=== PATIENT | female | born 1970 | race African-American/Black ===

== ENCOUNTER 2016-05-28 13:28 | Emergency (ER) | payer OTHER ==
[2016-05-28] MEDS ORDERED: Adacel (T-DAP) 0.5 ML VIAL ONE (14:07)
[2016-05-28] MEDS ORDERED: HYDROcodone/Acetaminophen 10/325 mg Tablet ONE (14:07)
[2016-05-28] MEDS ORDERED: Cephalexin 500 MG CAP ONE (14:07)
[2016-05-28] MEDS ORDERED: Naproxen 500 MG TAB ONE (14:07)
[2016-05-28] MEDS ORDERED: Triple Antibiotic Oint 1 GM Packet ONE (14:08)
--- NOTE | 2016-05-28 15:47 | RAD ---
LEFT TIBIA AND FIBULA TWO VIEWS 05/28/16 HISTORY: Trauma to leg. There is no signs of fracture or dislocation. IMPRESSION: Negative left tib/fib. POS: [facility]
== END 2016-05-28 15:05 | disposition home or self-care (01) ==
LOC: MADERS 13:28
DX: S80.12XA Contusion of left lower leg, initial encounter (principal); S80.812A Abrasion, left lower leg, initial encounter; W19.XXXA Unspecified fall, initial encounter
CPT/HCPCS: 90471; 90715

== ENCOUNTER 2016-12-13 14:49 | Emergency (ER) | payer OTHER | END 2016-12-13 16:15 | disposition home or self-care (01) | LOC: MADERS 14:49 | DX: J20.9 Acute bronchitis, unspecified (principal); Z79.899 Other long term (current) drug therapy | CPT/HCPCS: 93005 ==

== ENCOUNTER 2017-03-15 06:12 | Emergency (ER) | payer OTHER ==
[2017-03-15 07:28] LABS: #Eosinphils 0.3 thou/uL (0.0-0.7); #Lymphocytes 1.6 thou/uL (1.20-3.40); #Monocytes 0.5 thou/uL (0.11-0.59); #Neutrophils 4.7 thou/uL (1.40-6.50); %Basophils 0.6 % (0.0-1.0); %Eosinophils 3.6 % (0.0-10.0); %Lymphocytes 21.9 % (21.0-51.0); %Monocytes 7.3 % (0.0-10.0); %Neutrophils 66.6 % (42.0-75.0); Hemoglobin 13.3 g/dL (12.0-16.0); Mean Corpuscular HGB CONC 31.9 g/dL (32.0-36.0); Mean Corpuscular Hemoglobin 29.3 pg (27.0-31.0); Mean Corpuscular Volume 91.8 fl (81.0-99.0); Mean Platelet Volume 11.6 fL (7.4-10.4); Platelet Count 211 thou/uL (130-400); RBC Distribution Width 12.9 % (11.5-14.5); Red Blood Cell (RBC) Count 4.52 mill/uL (4.20-5.40); White Blood Cell (WBC) Count 7.1 thou/uL (4.8-10.8)
[2017-03-15 07:49] LABS: ALT (SGPT) 19 U/L (8-55); AST (SGOT) 24 U/L (5-34); Albumin 3.7 g/dL (3.5-5.0); Alkaline Phosphatase 67 U/L (40-150); Anion Gap 14 mmol/L (10-20); BUN (Urea Nitrogen) 9 mg/dL (7.0-18.7); Bilirubin, Total 0.4 mg/dL (0.2-1.2); Calc. Creatinine Clearance 0 mL/min (70-130); Calcium 9.4 mg/dL (7.8-10.44); Carbon Dioxide 26 mmol/L (22-29); Chloride 105 mmol/L (98-107); Estimated GFR-MDRD Greater than 90; Globulin 3.6 g/dL (2.4-3.5); Glucose 90 mg/dL (70-105); Potassium 4.6 mmol/L (3.5-5.1); Protein, Total 7.3 g/dL (6.0-8.3); Sodium 140 mmol/L (136-145); Uric Acid 4.6 mg/dL (2.6-6.0)
[2017-03-15] MEDS ORDERED: Ondansetron ODT 4 MG TAB ONE (07:58)
[2017-03-15] MEDS ORDERED: Ketorolac Tromethamine 30 MG/ML VIAL ONE (07:58)
--- NOTE | 2017-03-15 08:14 | RAD ---
THREE VIEWS LEFT ANKLE: Comparison: None. History: Left ankle pain for the last couple of days. FINDINGS: Three views of the left ankle shows no evidence of acute fracture or dislocation. No soft tissue swel ling is seen. No degenerative changes are present. IMPRESSION: Unremarkable exam. POS: [id number]
== END 2017-03-15 08:10 | disposition home or self-care (01) ==
LOC: MADERS 06:12
DX: S93.401A Sprain of unspecified ligament of right ankle, initial encounter (principal); S93.402A Sprain of unspecified ligament of left ankle, initial encounter; Z79.899 Other long term (current) drug therapy; X50.9XXA Other and unspecified overexertion or strenuous movements or postures, initial encounter
CPT/HCPCS: 80053; 84550; 85025; 85652; 96372; J1885; Q0162

== ENCOUNTER 2017-11-01 14:38 | Emergency (ER) | payer OTHER ==
[2017-11-01] MEDS ORDERED: Acetaminophen 500 MG TAB ONE (15:14)
[2017-11-01] MEDS ORDERED: Dexamethasone 4 MG TAB ONE (15:14)
== END 2017-11-01 15:32 | disposition home or self-care (01) ==
LOC: MADERS 14:38
DX: M79.602 Pain in left arm (principal); Z79.899 Other long term (current) drug therapy
CPT/HCPCS: 99283; J8540

== ENCOUNTER 2018-04-29 11:49 | Emergency (ER) | payer OTHER ==
[2018-04-29] MEDS ORDERED: Acetaminophen 500 MG TAB ONE (12:21)
--- NOTE | 2018-04-29 13:33 | RAD ---
2 VIEW CHEST: Date: 04/29/18 INDICATION: Cough. FINDINGS: Lungs are clear. Cardiac silhouette is normal in size. No effusion or pneumothorax. IMPRESSION: No focal consolidation. POS: [facility]
== END 2018-04-29 13:05 | disposition home or self-care (01) ==
LOC: MADERS 11:49
DX: J06.9 Acute upper respiratory infection, unspecified (principal)
CPT/HCPCS: 71046; 87804

== ENCOUNTER 2021-02-01 14:12 | Outpatient (CLI) | payer BC | END 2021-02-01 14:13 | disposition home or self-care (01) | LOC: MADRAD 14:12 | PROVIDERS: ATTEND Family Medicine | DX: R05.9 Cough, unspecified (principal) | CPT/HCPCS: 71046 ==

== ENCOUNTER 2021-02-02 05:45 | Outpatient (CLI) | payer BC ==
[2021-02-02 06:59] LABS: #Basophils 0.1 thou/uL (0.0-0.2); #Eosinphils 0.3 thou/uL (0.0-0.7); #Lymphocytes 2.1 thou/uL (1.20-3.40); #Monocytes 0.6 thou/uL (0.11-0.59); #Neutrophils 5.4 thou/uL (1.40-6.50); %Basophils 1.1 % (0.0-1.0); %Eosinophils 3.7 % (0.0-10.0); %Lymphocytes 24.4 % (21.0-51.0); %Monocytes 7.4 % (0.0-10.0); %Neutrophils 63.3 % (42.0-75.0); Hemoglobin 13.8 g/dL (12.0-16.0); Mean Corpuscular HGB CONC 31.6 g/dL (32.0-36.0); Mean Corpuscular Hemoglobin 28.7 pg (27.0-31.0); Mean Corpuscular Volume 90.7 fL (78.0-98.0); Mean Platelet Volume 10.2 fL (7.4-10.4); Platelet Count 239 thou/uL (130-400); RBC Distribution Width 13.3 % (11.5-14.5); White Blood Cell (WBC) Count 8.6 thou/uL (4.8-10.8)
[2021-02-02 07:12] LABS: ALT (SGPT) 43 U/L (8-55); AST (SGOT) 30 U/L (5-34); Albumin 3.5 g/dL (3.5-5.0); Alkaline Phosphatase 76 U/L (40-110); Anion Gap 12 mmol/L (10-20); BUN (Urea Nitrogen) 7 mg/dL (7.0-18.7); Bilirubin, Total 0.4 mg/dL (0.2-1.2); Calc. Creatinine Clearance 0 mL/min (70-130); Calcium 9.3 mg/dL (7.8-10.44); Carbon Dioxide 27 mmol/L (22-29); Cardiac Risk 3.9 (Less than 4.5); Chloride 108 mmol/L (98-107); Cholesterol 146 mg/dl (< 200 Desired); Globulin 3.5 g/dL (2.4-3.5); Glucose 96 mg/dL (70-105); HDL Cholesterol 37 mg/dL (>60 Neg Risk); LDL Cholesterol, Calculated 95 mg/dL; Potassium 4.1 mmol/L (3.5-5.1); Sodium 143 mmol/L (136-145); Triglycerides 70 mg/dL (Less than 150)
[2021-02-02 11:07] LABS: Hemoglobin A1c 5.8 % (4.0-6.0)
[2021-02-02 11:47] LABS: HIV (1/2) Antibody/Antigen Non-Reactive (NonReactive); HIV 1/2 INDEX 0.17 S/CO (<1.00)
== END 2021-02-02 05:46 | disposition home or self-care (01) ==
LOC: MADLAB 05:45
PROVIDERS: ATTEND Family Medicine
DX: Z00.00 Encounter for general adult medical examination without abnormal findings (principal)
CPT/HCPCS: 36415; 80053; 80061; 82306; 83036; 84443; 85025; 87389

== ENCOUNTER 2022-01-25 04:12 | Outpatient (CLI) | payer BC ==
[2022-01-25 04:27] LABS: #Eosinphils 0.3 thou/uL (0.0-0.7); #Lymphocytes 2.8 thou/uL (1.20-3.40); #Monocytes 0.6 thou/uL (0.11-0.59); #Neutrophils 5.5 thou/uL (1.40-6.50); %Basophils 0.4 % (0.0-1.0); %Eosinophils 3.2 % (0.0-10.0); %Lymphocytes 30.2 % (21.0-51.0); %Monocytes 6.3 % (0.0-10.0); %Neutrophils 59.8 % (42.0-75.0); Hemoglobin 13.3 g/dL (12.0-16.0); Mean Corpuscular HGB CONC 32.1 g/dL (32.0-36.0); Mean Corpuscular Hemoglobin 28.8 pg (27.0-31.0); Mean Corpuscular Volume 89.7 fl (78.0-98.0); Mean Platelet Volume 10.6 fL (7.4-10.4); Platelet Count 247 10x3/uL (130-400); RBC Distribution Width 12.8 % (11.5-14.5); Red Blood Cell (RBC) Count 4.62 mill/uL (4.20-5.40); White Blood Cell (WBC) Count 9.2 10x3/uL (4.8-10.8)
[2022-01-25 05:04] LABS: ALT (SGPT) 16 U/L (8-55); AST (SGOT) 23 U/L (5-34); Albumin 3.6 g/dL (3.5-5.0); Alkaline Phosphatase 73 U/L (40-110); Anion Gap 12 mmol/L (10-20); BUN (Urea Nitrogen) 9 mg/dL (7.0-18.7); Bilirubin, Total 0.4 mg/dL (0.2-1.2); Calc. Creatinine Clearance 0 mL/min (70-130); Carbon Dioxide 25 mmol/L (22-29); Cardiac Risk 2.9 (Less than 4.5); Chloride 108 mmol/L (98-107); Cholesterol 137 mg/dl (< 200 Desired); Estimated GFR 104; Globulin 3.6 g/dL (2.4-3.5); Glucose 89 mg/dL (70-105); HDL Cholesterol 47 mg/dL (>60 Neg Risk); LDL Cholesterol, Calculated 76 mg/dL; Potassium 3.8 mmol/L (3.5-5.1); Protein, Total 7.2 g/dL (6.0-8.3); Sodium 141 mmol/L (136-145); Triglycerides 69 mg/dL (Less than 150)
[2022-01-25 06:26] LABS: Thyroid Stimulating Hormone 2.2718 uIU/mL (0.35-4.94)
[2022-01-25 13:33] LABS: HIV (1/2) Antibody/Antigen Non-Reactive (NonReactive); HIV 1/2 INDEX 0.24 S/CO (<1.00); Vitamin D, 25 Hydroxy 46.7 ng/ml (> 30.0)
[2022-01-25 13:46] LABS: Hemoglobin A1c 5.7 % (4.0-6.0)
== END 2022-01-25 04:13 | disposition home or self-care (01) ==
LOC: MADLAB 04:12
PROVIDERS: ATTEND Family Medicine
DX: Z00.00 Encounter for general adult medical examination without abnormal findings (principal)
CPT/HCPCS: 80053; 80061; 82306; 83036; 84443; 85025; 87389

== ENCOUNTER 2025-01-05 16:10 | Emergency (ER) | payer BC ==
[2025-01-05 16:57] LABS: Glucose, Urine (Dipstick) Negative (Negative); Leukocyte Negative (Negative); Protein, Urine (Dipstick) Negative (Neg-Trace); Specific Gravity, Urine 1.010 (1.005-1.030)
[2025-01-05 17:02] LABS: CAUTI Indications for Culture Acute Hematuria; RBC/HPF 0-3 HPF (0-3)
[2025-01-05 17:03] LABS: Bacteria/HPF 1+ HPF (None Seen); Urine Culture Reflex No No; WBC/HPF 0-3 HPF (0-3)
[2025-01-05 17:11] LABS: Hematocrit 46.4 % (36.0-47.0); Hemoglobin 14.1 g/dL (12.0-16.0); MDiff Complete? YES; Mean Corpuscular Hemoglobin 27.4 pg (27.0-31.0); Mean Corpuscular Volume 90.3 fl (78.0-98.0); Platelet Adequacy Comment Appears Adequate; Platelet Count 232 10x3/uL (130-400); Red Blood Cell (RBC) Count 5.14 mill/uL (4.20-5.40); White Blood Cell (WBC) Count 7.1 10x3/uL (4.8-10.8)
[2025-01-05 17:14] LABS: ALT (SGPT) 28 U/L (Less than 34); AST (SGOT) 36 U/L (11-34); Albumin 3.9 g/dL (3.1-4.5); Alkaline Phosphatase 93 U/L (40-110); Anion Gap 16 mmol/L (10-20); BUN (Urea Nitrogen) 9 mg/dL (9.8-20.1); Bilirubin, Total 0.3 mg/dL (0.3-1.2); Calc. Creatinine Clearance 0 mL/min (70-130); Calcium 9.5 mg/dL (7.8-10.44); Carbon Dioxide 25 mmol/L (22-29); Chloride 105 mmol/L (98-107); Globulin 4.1 g/dL (2.4-3.5); Glucose 89 mg/dL (70-105); Potassium 3.9 mmol/L (3.5-5.1); Sodium 142 mmol/L (136-145)
== END 2025-01-05 17:26 | disposition home or self-care (01) ==
LOC: MADERS 16:10
DX: S39.011A Strain of muscle, fascia and tendon of abdomen, initial encounter (principal); X50.9XXA Other and unspecified overexertion or strenuous movements or postures, initial encounter
CPT/HCPCS: 36415; 80053; 81001; 85025; 99284